=== PATIENT | female | born 1990 | race Caucasian/White ===

== ENCOUNTER 2018-05-14 13:00 | Emergency (ER) | payer BC ==
[2018-05-14] MEDS ORDERED: SODIUM CHLORIDE 0.9% 1,000 ML IV STA (13:34)
[2018-05-14 13:36] VITALS: RESP 18
--- NOTE | 2018-05-14 13:39 | ED ---
SOB HPI - General Chief Complaint: Shortness of Breath Stated Complaint: ASTON Time Seen by Provider: 05/14/18 13:21 Source: patient, RN notes reviewed, old records reviewed Mode of arrival: wheelchair Limitations: no limitations - History of Present Illness Initial Comments: His is a 27-year-old female presents emergency department today with chief complaint of episodes of numbness and tingling down the left side of her face as well as her leg. Patient reports that this occurred while she was playing volleyball today. Patient states that prior to splinting level today she started to feel somewhat strange and confused. Patient states that she was playing and had this onset of the tingling sensation in the hand face. Patient reports that she then started developing difficulty breathing. Patient was transferred here with her boyfriend and father. Father states history of brain aneurysms. Patient reports that she had resolution of her difficulty breathing and most of her symptoms while she was in the emergency department. Patient at this time states that she feels somewhat shaky. She denies any significant shortness of breath at this time. - Related Data Allergies Allergy/AdvReac Type Severity Reaction Status Date / Time codeine Allergy Unknown Verified 05/14/18 13:04 Review of Systems ROS Statement: Those systems with pertinent positive or pertinent negative responses have been documented in the HPI. ROS Other: All systems not noted in ROS Statement are negative. Past Medical History Past Medical History: No Reported History History of Any Multi-Drug Resistant Organisms: None Reported Past Surgical History: No Surgical Hx Reported Past Psychological History: No Psychological Hx Reported Smoking Status: Never smoker Past Alcohol Use History: Occasional Past Drug Use History: None Reported General Exam - General Exam Comments Initial Comments: 27-year-old female. Alert and oriented. No significant distress. Patient appears somewhat anxious. Limitations: no limitations General appearance: alert, in no apparent distress Head exam: Present: atraumatic, normocephalic, normal inspection Eye exam: Present: normal appearance, PERRL, EOMI. Absent: scleral icterus, conjunctival injection, periorbital swelling ENT exam: Present: normal exam, mucous membranes moist Neck exam: Present: normal inspection. Absent: tenderness, meningismus, lymphadenopathy Respiratory exam: Present: normal lung sounds bilaterally. Absent: respiratory distress, wheezes, rales, rhonchi, stridor Cardiovascular Exam: Present: regular rate, normal rhythm, normal heart sounds. Absent: systolic murmur, diastolic murmur, rubs, gallop, clicks GI/Abdominal exam: Present: soft, normal bowel sounds. Absent: distended, tenderness, guarding, rebound, rigid Extremities exam: Present: normal inspection, full ROM, normal capillary refill. Absent: tenderness, pedal edema, joint swelling, calf tenderness Back exam: Present: normal inspection Neurological exam: Present: alert, oriented X3, CN II-XII intact Psychiatric exam: Present: normal affect, normal mood Skin exam: Present: warm, dry, intact, normal color. Absent: rash Course Vital Signs 05/14/18 05/14/18 05/14/18 13:01 13:32 14:30 Temperature 98.1 F 98.3 F Pulse Rate 112 H 92 92 Pulse Rate [ 92 Churner ] Respiratory 24 18 18 Rate Blood Pressure 146/81 139/87 115/72 O2 Sat by Pulse 100 98 98 Oximetry 05/14/18 15:42 Temperature 97.2 F L Pulse Rate 85 Pulse Rate [ Churner ] Respiratory 18 Rate Blood Pressure 111/69 O2 Sat by Pulse 97 Oximetry - Reevaluation(s) Reevaluation #1: 05/14/18 15:20 Patient advised resting heavily bed at this time. She states she has no peripheral paresthesias. She is complaining of a minor headache. Patient is given Toradol. A portable results in the lab work was reviewed and normal. Patient initially with this. The patient's symptoms related to panic attack and likely had a migraine on top of this symptoms of paresthesias and the headache prior to her symptoms. Medical Decision Making - Medical Decision Making This is a 27-year-old female present the emergency department today with chief complaint of paresthesias, hyperventilation, and paresthesias over the left side of her face and arm. They resolved upon arriving here. She was feeling better initially. Patient also relates a minor headache. Patient is quite concerned about adamantly some the brain with history of aneurysms the family. CT of the brain was ordered and completed and negative for any acute process. She is no focal or lateralizing findings and examination. Patient's lungs are clear to auscultation. The Patient likely was suffering from a migraine and subsequently had a panic attack. Patient was given IV fluids and follow-up for labwork was reviewed and normal. Normal EKG. Patient informed of all results. She is feeling some early but does complain of minor headache. We'll give the Patient Toradol and Zofran at this time. Patient was reevaluated and feels much better. Patient will be discharged with close follow up with PCP. - Lab Data Result diagrams: 05/14/18 13:30 05/14/18 13:30 Lab Results 05/14/18 05/14/18 05/14/18 Range/Units 13:30 13:30 13:30 WBC 6.4 (3.8-10.6) k/uL RBC 4.65 (3.80-5.40) m/uL Hgb 14.3 (11.4-16.0) gm/dL Hct 42.7 (34.0-46.0) % MCV 91.8 (80.0-100.0) fL MCH 30.7 (25.0-35.0) pg MCHC 33.5 (31.0-37.0) g/dL RDW 12.5 (11.5-15.5) % Plt Count 234 (150-450) k/uL Neutrophils % 70 % Lymphocytes % 21 % Monocytes % 6 % Eosinophils % 1 % Basophils % 0 % Neutrophils # 4.4 (1.3-7.7) k/uL Lymphocytes # 1.3 (1.0-4.8) k/uL Monocytes # 0.4 (0-1.0) k/uL Eosinophils # 0.0 (0-0.7) k/uL Basophils # 0.0 (0-0.2) k/uL PT (9.0-12.0) sec INR (<1.2) APTT (22.0-30.0) sec Sodium 137 (137-145) mmol/L Potassium 3.7 (3.5-5.1) mmol/L Chloride 104 (98-107) mmol/L Carbon Dioxide 18 L (22-30) mmol/L Anion Gap 15 mmol/L BUN 12 (7-17) mg/dL Creatinine 0.67 (0.52-1.04) mg/dL Est GFR (CKD-EPI)AfAm >90 (>60 ml/min/1.73 sqM) Est GFR (CKD-EPI)NonAf >90 (>60 ml/min/1.73 sqM) Glucose 125 H (74-99) mg/dL Calcium 9.4 (8.4-10.2) mg/dL Total Bilirubin 0.7 (0.2-1.3) mg/dL AST 23 (14-36) U/L ALT 24 (9-52) U/L Alkaline Phosphatase 48 (38-126) U/L Total Creatine Kinase 108 (30-135) U/L CK-MB (CK-2) 0.6 (0.0-2.4) ng/mL CK-MB (CK-2) Rel Index 0.6 Troponin I <0.012 (0.000-0.034) ng/mL Total Protein 7.6 (6.3-8.2) g/dL Albumin 4.6 (3.5-5.0) g/dL 05/14/18 Range/Units 13:30 WBC (3.8-10.6) k/uL RBC (3.80-5.40) m/uL Hgb (11.4-16.0) gm/dL Hct (34.0-46.0) % MCV (80.0-100.0) fL MCH (25.0-35.0) pg MCHC (31.0-37.0) g/dL RDW (11.5-15.5) % Plt Count (150-450) k/uL Neutrophils % % Lymphocytes % % Monocytes % % Eosinophils % % Basophils % % Neutrophils # (1.3-7.7) k/uL Lymphocytes # (1.0-4.8) k/uL Monocytes # (0-1.0) k/uL Eosinophils # (0-0.7) k/uL Basophils # (0-0.2) k/uL PT 10.4 (9.0-12.0) sec INR 1.1 (<1.2) APTT 23.6 (22.0-30.0) sec Sodium (137-145) mmol/L Potassium (3.5-5.1) mmol/L Chloride (98-107) mmol/L Carbon Dioxide (22-30) mmol/L Anion Gap mmol/L BUN (7-17) mg/dL Creatinine (0.52-1.04) mg/dL Est GFR (CKD-EPI)AfAm (>60 ml/min/1.73 sqM) Est GFR (CKD-EPI)NonAf (>60 ml/min/1.73 sqM) Glucose (74-99) mg/dL Calcium (8.4-10.2) mg/dL Total Bilirubin (0.2-1.3) mg/dL AST (14-36) U/L ALT (9-52) U/L Alkaline Phosphatase (38-126) U/L Total Creatine Kinase (30-135) U/L CK-MB (CK-2) (0.0-2.4) ng/mL CK-MB (CK-2) Rel Index Troponin I (0.000-0.034) ng/mL Total Protein (6.3-8.2) g/dL Albumin (3.5-5.0) g/dL 05/14/18 15:22 EKG performed at 1336 shows normal sinus rhythm normal ECG. Ventricular rate 94 bpm. Intervals 160. QRS duration 90 ms. QT QTc is 350/440 ms. - Radiology Data Radiology results: report reviewed Chest x-rays negative for any acute process. CT of the brain is negative for any acute hemorrhage or mass effect or midline shift. Disposition Clinical Impression: Migraine, Paresthesia, Anxiety Disposition: HOME SELF-CARE Condition: Good Instructions: Migraine Headache (ED) Additional Instructions: Patient has had some close follow-up with primary care physician. Schedule an appointment for Wednesday. Return to emergency department if any alarming signs or symptoms occur. Is patient prescribed a controlled substance at d/c from ED?: No Referrals: Kt Nelson MD [Primary Care Provider] - 1-2 days Time of Disposition: 15:31
[2018-05-14 14:06] LABS: ALT 24 U/L (9-52); AST 23 U/L (14-36); Albumin 4.6 g/dL (3.5-5.0); Alkaline Phosphatase 48 U/L (38-126); Anion Gap 15 mmol/L; Blood Urea Nitrogen 12 mg/dL (7-17); Calcium 9.4 mg/dL (8.4-10.2); Carbon Dioxide 18 mmol/L (22-30); Chloride 104 mmol/L (98-107); Creatine Kinase 108 U/L (30-135); Glucose 125 mg/dL (74-99); Potassium 3.7 mmol/L (3.5-5.1); Sodium 137 mmol/L (137-145); Total Bilirubin 0.7 mg/dL (0.2-1.3); Total Protein 7.6 g/dL (6.3-8.2)
[2018-05-14 14:10] LABS: INR 1.1 (<1.2); Partial Thromboplastin Time 23.6 sec (22.0-30.0); Prothrombin Time 10.4 sec (9.0-12.0)
[2018-05-14 14:18] LABS: Creatine Kinase MB 0.6 ng/mL (0.0-2.4); Troponin I <0.012 ng/mL (0.000-0.034)
--- NOTE | 2018-05-14 14:18 | CT ---
EXAMINATION TYPE: CT brain wo con DATE OF EXAM: 05/14/2018 COMPARISON: NONE HISTORY: Blurred vision and weakness. No known injury CT DLP: 999.8 mGycm. Automated Exposure Control for Dose Reduction was Utilized. TECHNIQUE: CT scan of the head is performed without contrast. FINDINGS: There is no acute intracranial hemorrhage, mass effect, or midline shift identified. The ventricles and sulci are within normal limits in size. The globes are intact and the visualized sin uses are clear. IMPRESSION: No acute intracranial hemorrhage, mass effect, or midline shift is seen.
--- NOTE | 2018-05-14 14:18 | XR ---
EXAMINATION TYPE: XR chest 2V DATE OF EXAM: 05/14/2018 COMPARISON: NONE HISTORY: Altered mental status TECHNIQUE: Frontal and lateral views of the chest are obtained. FINDINGS: There is no focal air space opacity, pleural effusion, or pneumothorax seen. The cardiac silhouette size is within normal limits. The osseous structures are intact. IMPRESSION: No acute cardiopulmonary process.
[2018-05-14 14:19] LABS: Basophils % (A) 0 %; Eosinophils % (A) 1 %; HCT 42.7 % (34.0-46.0); HGB 14.3 gm/dL (11.4-16.0); Lymphocytes # (A) 1.3 k/uL (1.0-4.8); Lymphocytes % (A) 21 %; MCH 30.7 pg (25.0-35.0); MCHC 33.5 g/dL (31.0-37.0); MCV 91.8 fL (80.0-100.0); Monocytes # (A) 0.4 k/uL (0-1.0); Monocytes % (A) 6 %; Neutrophils # (A) 4.4 k/uL (1.3-7.7); Neutrophils % (A) 70 %; Platelet Count 234 k/uL (150-450); RBC 4.65 m/uL (3.80-5.40); RDW 12.5 % (11.5-15.5); WBC 6.4 k/uL (3.8-10.6)
[2018-05-14] MEDS ORDERED: ONDANSETRON 4 MG/2 ML VIAL IVP STA (14:47)
[2018-05-14] MEDS ORDERED: KETOROLAC 30 MG/ML 1 ML VIAL IVP STA (14:47)
[2018-05-14 15:43] VITALS: BP 111/69; PULSE 85; TEMP 97.2
== END 2018-05-14 15:43 | disposition home or self-care (01) ==
LOC: EC 13:00
DX: G43.909 Migraine, unspecified, not intractable, without status migrainosus (principal); F41.9 Anxiety disorder, unspecified; R20.2 Paresthesia of skin; I67.1 Cerebral aneurysm, nonruptured; Z88.5 Allergy status to narcotic agent
CPT/HCPCS: 36415; 93005; 80053; 82550; 82553; 84484; 85025; 85610; 85730; 71046; 70450; 99285; 96374; 96375; 96361; J2405; J1885

== ENCOUNTER 2020-03-24 23:40 | Observation (INO) | payer BC ==
[2020-03-25] MEDS: LACTATED RINGERS 1,000 ML IV SCH ×2 (00:27→01:47)
[2020-03-25 00:46] LABS: Basophils % (A) 0 %; Eosinophils # (A) 0.1 k/uL (0-0.7); Eosinophils % (A) 1 %; HCT 34.2 % (34.0-46.0); HGB 11.5 gm/dL (11.4-16.0); Lymphocytes # (A) 1.4 k/uL (1.0-4.8); Lymphocytes % (A) 18 %; MCH 30.7 pg (25.0-35.0); MCHC 33.6 g/dL (31.0-37.0); MCV 91.3 fL (80.0-100.0); Mean Platelet Volume 7.6; Monocytes # (A) 0.6 k/uL (0-1.0); Monocytes % (A) 8 %; Neutrophils # (A) 5.2 k/uL (1.3-7.7); Neutrophils % (A) 70 %; Platelet Count 244 k/uL (150-450); RBC 3.74 m/uL (3.80-5.40); RDW 13.8 % (11.5-15.5); WBC 7.4 k/uL (3.8-10.6)
[2020-03-25 00:48] LABS: Amorphous Sediment,Urine Rare /hpf; Appearance,Urine Clear (Clear); Bacteria,Urine Occasional /hpf; Bilirubin,Urine Negative (Negative); Blood,Urine Negative (Negative); Color,Urine Light Yellow; Glucose,Urine (UA) Negative (Negative); Ketones,Urine Negative (Negative); Leukocyte Esterase,Urine Trace (Negative); Nitrite,Urine Negative (Negative); Protein,Urine Negative (Negative); RBC,Urine 2 /hpf (0-5); Specific Gravity,Urine 1.008 (1.001-1.035); Squamous Epithelial Cell,Urine 1 /hpf (0-4); Urobilinogen,Urine <2.0 mg/dL (<2.0); WBC,Urine 3 /hpf (0-5)
[2020-03-25 00:54] LABS: ALT 17 U/L (4-34); AST 21 U/L (14-36); African American GFR (CKD) >90 (>60 ml/min/1.73 sqM); Blood Urea Nitrogen 6 mg/dL (7-17); LDH 354 U/L (313-618); Non-African American GFR(CKD) >90 (>60 ml/min/1.73 sqM)
[2020-03-25 01:06] LABS: Protein/Creatinine Ratio,Urine 0.461
[2020-03-25] MEDS ORDERED: ACETAMINOPHEN TAB 500 MG TAB PO PRN (01:24)
[2020-03-25 04:11] VITALS: BP 129/77; PULSE 99; RESP 14; TEMP 98
--- NOTE | 2020-03-25 07:47 | US ---
EXAMINATION TYPE: US OB limited DATE OF EXAM: 03/25/2020 COMPARISON: NONE CLINICAL HISTORY: NADINE only . EXAM PERFORMED: Transabdominal (TA) GESTATIONAL AGE / DATING Physician Established: (31 weeks/1 days) EDC: 05/26/19 No growth performed on today?s study per ordering physician SURVEY NADINE: 13.8 cm Normal (Tech?if abnormal transabdominally?image transvaginally to substantiate abnormality.) PRESENTATION: Vertex HEART RATE: 142 bpm RHYTHM: Normal IMPRESSION: Examination was performed for amniotic fluid index only as a limited exam. Amniotic flui d index is within normal limits measured at 13.8 cm.
--- NOTE | 2020-03-25 09:11 | P.HPOB ---
History of Present Illness H&P Date: 03/25/20 Chief Complaint: IUP at 31 weeks, abdominal pain This is a pleasant 29-year-old 1 para 0 at 31 weeks of gestation with an estimated due date of 05/26/2020. Patient presented to labor and delivery last evening after noting abdominal pain that was coming and going, increasing in strength. Patient states movement was decreased in addition. On initial presentation to triage elevated blood pressures were noted 140s 150s over 80s. Patient denied signs or symptoms of preeclampsia. Preeclampsia labs were obtained last evening. All normal in nature. heart tones were noted to be reassuring for gestational age at that time. IV fluids were instituted, and patient was admitted for observation with planned ultrasound for NADINE in the morning. Patient is seen this morning she is without complaints. She states she is feeling better, movement is improved, heart tones are noted to be category 1. She is not nadya. Review of Systems Constitutional: Denies chills, Denies fatigue, Denies fever Ears, nose, mouth and throat: Denies headache Cardiovascular: Denies edema Respiratory: Denies dyspnea Gastrointestinal: Denies nausea, Denies vomiting Genitourinary: Reports Past Medical History Past Medical History: No Reported History History of Any Multi-Drug Resistant Organisms: None Reported Past Surgical History: No Surgical Hx Reported Past Anesthesia/Blood Transfusion Reactions: No Reported Reaction Past Psychological History: No Psychological Hx Reported Smoking Status: Never smoker Past Alcohol Use History: Occasional Past Drug Use History: None Reported - Past Family History Mother Family Medical History: No Reported History Medications and Allergies Home Medications Medication Instructions Recorded Confirmed Type Pnv,Calcium 72/Iron/Folic Acid 1 tab PO DAILY 03/24/20 03/24/20 History [ Plus Tablet] Allergies Allergy/AdvReac Type Severity Reaction Status Date / Time codeine Allergy Unknown Verified 03/24/20 23:46 Exam Osteopathic Statement: *. No significant issues noted on an osteopathic structural exam other than those noted in the History and Physical/Consult. 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 Breathing is noted to nonlabored, heart has regular rate and rhythm, abdomen is gravid and soft, vaginal exam is deferred at this time and she is not nadya and was noted to be closed last evening. heart tones are reviewed and noted to be category 1, no contractions are noted on the monitor. Results Result Diagrams: 03/25/20 00:27 03/25/20 00:27 Abnormal Lab Results - Last 24 Hours (Table) 03/25/20 03/25/20 03/25/20 Range/Units 00:27 00:27 00:27 RBC 3.74 L (3.80-5.40) m/uL BUN 6 L (7-17) mg/dL Creatinine 0.35 L (0.52-1.04) mg/dL Uric Acid 3.0 L (3.7-7.4) mg/dL Ur Leukocyte Esterase Trace H (Negative) Amorphous Sediment Rare H (None) /hpf Urine Bacteria Occasional H (None) /hpf Assessment and Plan (1) 31 weeks gestation of Current Visit: Yes Status: Acute Code(s): Z3A.31 - 31 WEEKS GESTATION OF SNOMED Code(s): 92500273 (2) Abdominal pain affecting Current Visit: Yes Status: Acute Code(s): O26.899 - OTH RELATED CONDITIONS, UNSPECIFIED TRIMESTER; R10.9 - UNSPECIFIED ABDOMINAL PAIN SNOMED Code(s): 365826377 (3) Uterine fibroid Current Visit: Yes Status: Acute Code(s): D25.9 - LEIOMYOMA OF UTERUS, UNSPECIFIED SNOMED Code(s): 96494721 Plan: Given patient is feeling much improved this morning we will plan discharge with close follow up with myself on Wednesday. Prior records are reviewed with patient, initial first trimester ultrasound revealing fundal/right-sided u terine fibroid 3 cm in nature, when ultrasound was completed around 20 weeks' this fibroid was noted to be increased in size to 5 cm. I do suspect that the growth of the fibroid could be related to her pain. labor precautions are reviewed with the patient. As stated above she will be seen Wednesday for close follow-up. Blood pressures are reviewed through the evening and all normal. Blood pressure this morning 130s over 70s. Plan discharge home.
--- NOTE | 2020-03-25 09:13 | P.DS ---
Providers Date of admission: 03/25/20 01:24 Expected date of discharge: 03/25/20 Attending physician: Sophia Miller Primary care physician: Stated None - Discharge Diagnosis(es) (1) 31 weeks gestation of Current Visit: Yes Status: Acute (2) Abdominal pain affecting Current Visit: Yes Status: Acute (3) Uterine fibroid Current Visit: Yes Status: Acute Hospital Course: This pleasant 29-year-old 1 para 0 at 31 weeks of gestation presented last evening with complaints of abdominal pain. Patient is a known uterine fibroid which could be contributing to her abdominal pain. Patient was admitted overnight, IV fluids and close blood pressure monitoring were instituted. Blood pressures were normal over the night and into the morning. She suspects patient was quite nervous being in the hospital, and worried about what was happening. heart tones are noted to be reassuring, amniotic fluid index is noted to be normal as morning. She hasn't had contractions over the evening or this morning. Plan - Discharge Summary New Discharge Prescriptions: No Action Pnv,Calcium 72/Iron/Folic Acid [ Plus Tablet] 1 tab PO DAILY Discharge Medication List Pnv,Calcium 72/Iron/Folic Acid [ Plus Tablet] 1 tab PO DAILY 03/24/20 [History] Follow up Appointment(s)/Referral(s): Sophia Miller DO [Doctor of Osteopathic Medicine] - 1 Week Discharge Disposition: HOME SELF-CARE
== END 2020-03-25 09:15 | disposition home or self-care (01) ==
LOC: FBPOP 23:40 → 4FBP 03-25 01:24
PROVIDERS: ADMIT Obstetrics & Gynecology Obstetrics; ATTEND Obstetrics & Gynecology Obstetrics
DX: O26.893 Other specified pregnancy related conditions, third trimester (principal); R10.9 Unspecified abdominal pain; O34.13 Maternal care for benign tumor of corpus uteri, third trimester; D25.9 Leiomyoma of uterus, unspecified; Z3A.31 31 weeks gestation of pregnancy; R03.0 Elevated blood-pressure reading, without diagnosis of hypertension; Z88.5 Allergy status to narcotic agent
CPT/HCPCS: 59025; 99215; 96360; 82570; 84156; 82565; 83615; 84450; 84460; 84520; 84550; 85025; 81001; 76815; G0378

== ENCOUNTER 2020-05-16 11:04 | Inpatient (IN) | payer BC ==
[2020-05-16 11:41] LABS: Appearance,Urine Turbid (Clear); Bacteria,Urine Moderate /hpf; Bilirubin,Urine Negative (Negative); Blood,Urine Trace (Negative); Color,Urine Yellow; Glucose,Urine (UA) Negative (Negative); Ketones,Urine Negative (Negative); Leukocyte Esterase,Urine Large (Negative); Mucus,Urine Moderate /hpf; Nitrite,Urine Negative (Negative); PH, Urine 6.5 (5.0-8.0); Protein,Urine 1+ (Negative); RBC,Urine 9 /hpf (0-5); Specific Gravity,Urine 1.018 (1.001-1.035); Squamous Epithelial Cell,Urine 3 /hpf (0-4); WBC,Urine 23 /hpf (0-5)
[2020-05-16 11:50] LABS: Creatinine,Urine Random 208.9 mg/dL; Protein/Creatinine Ratio,Urine 0.215
[2020-05-16 12:04] LABS: Basophils % (A) 0 %; Eosinophils % (A) 1 %; HCT 34.4 % (34.0-46.0); HGB 11.6 gm/dL (11.4-16.0); Lymphocytes # (A) 0.9 k/uL (1.0-4.8); Lymphocytes % (A) 14 %; MCH 30.2 pg (25.0-35.0); MCHC 33.8 g/dL (31.0-37.0); MCV 89.4 fL (80.0-100.0); Mean Platelet Volume 8.8; Monocytes # (A) 0.5 k/uL (0-1.0); Monocytes % (A) 7 %; Neutrophils # (A) 5.4 k/uL (1.3-7.7); Neutrophils % (A) 77 %; Platelet Count 189 k/uL (150-450); RBC 3.84 m/uL (3.80-5.40); RDW 14.4 % (11.5-15.5); WBC 6.9 k/uL (3.8-10.6)
[2020-05-16] MEDS ORDERED: BUTORPHANOL 1 MG/ML 1 ML VIAL IV PRN (12:10)
[2020-05-16] MEDS ORDERED: DINOPROSTONE 10 MG INSERT.ER VAGINAL ONE (12:10)
[2020-05-16] MEDS ORDERED: ZOLPIDEM 5 MG TAB PO PRN (12:10)
[2020-05-16 12:13] LABS: ALT 15 U/L (4-34); AST 22 U/L (14-36); African American GFR (CKD) >90 (>60 ml/min/1.73 sqM); Blood Urea Nitrogen 3 mg/dL (7-17); LDH 391 U/L (313-618); Non-African American GFR(CKD) >90 (>60 ml/min/1.73 sqM); Uric Acid 3.7 mg/dL (3.7-7.4)
[2020-05-16] MEDS ORDERED: hydrALAZINE HCL 20 MG/ML 1 ML VIAL IVP STA (12:35)
[2020-05-16] MEDS ORDERED: CITRIC ACID-SODIUM CITRATE 15 ML CUP PO ONE (13:20)
[2020-05-16] MEDS ORDERED: OXYTOCIN 10 UNIT/ML 1 ML VIAL ONE (13:25)
[2020-05-16] MEDS ORDERED: PHENYLEPHRINE-0.9% NACL SYG 1 MG/10 ML SYRINGE ONE (13:25)
[2020-05-16] MEDS ORDERED: ONDANSETRON 4 MG/2 ML VIAL ONE (13:25)
[2020-05-16] MEDS ORDERED: MORPHINE SULFATE (PF) 0.3 MG/0.3 ML SYR ONE (13:25)
[2020-05-16] MEDS ORDERED: diphenhydrAMINE 50 MG/ML 1 ML VIAL IVP PRN ×3 (13:54→14:13)
[2020-05-16] MEDS ORDERED: NALOXONE 0.4 MG/ML 1 ML VIAL IV PRN ×2 (13:54→14:13)
[2020-05-16] MEDS ORDERED: MORPHINE SULFATE 2 MG/ML SYRINGE IVP PRN (13:54)
[2020-05-16] MEDS ORDERED: ONDANSETRON 4 MG/2 ML VIAL IVP PRN ×2 (13:54→14:13)
[2020-05-16] MEDS ORDERED: METOCLOPRAMIDE 5 MG/ML 2 ML VIAL IVP PRN (14:13)
[2020-05-16] MEDS ORDERED: ACETAMINOPHEN IV (For NPO) 1,000 MG in EMPTY BAG 1 BAG IVPB ONE (14:13)
[2020-05-16] MEDS ORDERED: diphenhydrAMINE 25 MG CAP PO PRN (14:13)
[2020-05-16] MEDS ORDERED: SIMETHICONE 80 MG CHEWABLE PO PRN (14:13)
[2020-05-16] MEDS ORDERED: ACETAMINOPHEN TAB 325 MG TAB PO PRN (14:13)
[2020-05-16] MEDS ORDERED: diphenhydrAMINE 50 MG CAP PO PRN (14:13)
[2020-05-16] MEDS ORDERED: OXYTOCIN 20 UNITS/1000 ML NS 1,000 ML IV SCH (14:15)
[2020-05-16] MEDS ORDERED: IBUPROFEN IV 800 MG in SODIUM CHLORIDE 0.9% 250 ML IV ONE (14:17)
--- NOTE | 2020-05-16 14:20 | P.HPOB ---
History of Present Illness H&P Date: 05/16/20 Chief Complaint: IUP at 38 and 4/sevenths weeks, preeclampsia This is a 29-year-old 1 para 0 at 38-4/7 weeks that presents to labor and delivery from the office after noted elevations of her blood pressure 150/94. Patient denied signs or symptoms of preeclampsia. While on labor and delivery patient's blood pressures were noted to be elevated 160s to 170s over 90s to 100s. At that time decision was made to admit the patient progressed 0 labs were done along with a urinalysis which yielded proteinuria. Patient was counseled on the need for primary secondary to preeclampsia remote from delivery, worsening blood pressures were noted despite hydralazine treatment. Patient has been receiving routine care which has been essentially uncomplicated despite the fact of a known uterine fibroid. Patient has some pain early in secondary to this fibroid otherwise she has felt well. On blood work she has a blood type of O+, rubella status is immune, B surface antigen negative, RPR nonreactive, group beta strep is negative. Review of Systems Constitutional: Denies chills, Denies fatigue, Denies fever Ears, nose, mouth and throat: Denies headache Cardiovascular: Reports leg edema Respiratory: Denies dyspnea Gastrointestinal: Denies constipation, Denies diarrhea, Denies nausea, Denies vomiting Genitourinary: Reports Past Medical History Past Medical History: No Reported History History of Any Multi-Drug Resistant Organisms: None Reported Past Surgical History: No Surgical Hx Reported Past Anesthesia/Blood Transfusion Reactions: No Reported Reaction Past Psychological History: No Psychological Hx Reported Smoking Status: Never smoker Past Alcohol Use History: Occasional Past Drug Use History: None Reported - Past Family History Mother Family Medical History: No Reported History Medications and Allergies Home Medications Medication Instructions Recorded Confirmed Type Pnv,Calcium 72/Iron/Folic Acid 1 tab PO DAILY 03/24/20 05/16/20 History [ Plus Tablet] Allergies Allergy/AdvReac Type Severity Reaction Status Date / Time codeine Allergy Unknown Verified 05/16/20 11:12 Exam Osteopathic Statement: *. No significant issues noted on an osteopathic structural exam other than those noted in the History and Physical/Consult. 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 heart tones returned be category 1 and she is not nadya. Results Result Diagrams: 05/16/20 11:52 05/16/20 11:52 Abnormal Lab Results - Last 24 Hours (Table) 05/16/20 05/16/20 05/16/20 Range/Units 11:15 11:15 11:52 Lymphocytes # (1.0-4.8) k/uL BUN 3 L (7-17) mg/dL Creatinine 0.41 L (0.52-1.04) mg/dL Urine Appearance Turbid H (Clear) Urine Protein 1+ H (Negative) Urine Blood Trace H (Negative) Ur Leukocyte Esterase Large H (Negative) Urine RBC 9 H (0-5) /hpf Urine WBC 23 H (0-5) /hpf Urine Bacteria Moderate H (None) /hpf Urine Mucus Moderate H (None) /hpf U Random Total Protein 45 H (<12) mg/dL 05/16/20 Range/Units 11:52 Lymphocytes # 0.9 L (1.0-4.8) k/uL BUN (7-17) mg/dL Creatinine (0.52-1.04) mg/dL Urine Appearance (Clear) Urine Protein (Negative) Urine Blood (Negative) Ur Leukocyte Esterase (Negative) Urine RBC (0-5) /hpf Urine WBC (0-5) /hpf Urine Bacteria (None) /hpf Urine Mucus (None) /hpf U Random Total Protein (<12) mg/dL Assessment and Plan (1) Term Current Visit: Yes Status: Acute Code(s): Z34.90 - ENCNTR FOR SUPRVSN OF NORMAL , UNSP, UNSP TRIMESTER SNOMED Code(s): 70156051 (2) Preeclampsia Current Visit: Yes Status: Acute Code(s): O14.90 - UNSPECIFIED PRE- ECLAMPSIA, UNSPECIFIED TRIMESTER SNOMED Code(s): 158245998 (3) Uterine fibroid Current Visit: No Status: Acute Code(s): D25.9 - LEIOMYOMA OF UTERUS, UNSPECIFIED SNOMED Code(s): 68842159 Plan: Patient is admitted to labor and delivery for planned primary secondary to preeclampsia, remote from delivery. Options are reviewed with patient including trying induction of labor but given worsening blood pressures I do believe primary is the best decision. Patient agrees and wishes to proceed. Risks of surgery are reviewed in detail including but not limited to infection, bleeding, damage to bladder, bowel, injury. Patient states understanding and is taken back to the operative suite.
--- NOTE | 2020-05-16 14:24 | P.OP ---
Date of Procedure: 05/16/20 Preoperative Diagnosis: IUP at 38 and 4/sevenths weeks, preeclampsia, remote from delivery Postoperative Diagnosis: Same Procedure(s) Performed: Primary low transverse section Anesthesia: spinal Surgeon: Sophia Miller Java Solutions Architect #1: Renee Sorto Estimated Blood Loss (ml): 700 IV fluids (ml): 800 Urine output (ml): 200 Pathology: other (Placenta) Condition: stable Disposition: PACU Indications for Procedure: This 29-year-old 1 para 0 with noted elevated pressures 160s to 170s over 100 diagnosis of severe preeclampsia, remote from delivery. Operative Findings: Uterus with known right anterior fibroid, omental adhesions to uterine fibroid. Otherwise normal ovaries are appreciated. Liveborn male delivered at 1342, weight of 9 lbs. 4 oz. and Apgars of 9 and 9 at one and 5 minutes respect daily. Description of Procedure: Patient is taken back to the operating suite where spinal anesthesia was found be adequate by the anesthesia department. She was then prepped and draped in normal sterile fashion in the dorsal supine position. A Pfannenstiel skin incision was made with scalpel and carried through to the underlying layer of fascia. The fascia was then incised in the midline and the incision was extended laterally. The superior aspect of the fascial incision was then grasped amy clamps, elevated and underlying rectus muscles dissected off sharply. Attention was then turned to the patient's inferior aspect of the fascial incision which was grasped amy clamps, elevated and underlying rectus muscles dissected off sharply once again. The rectus muscles were in the midline the peritoneum was identified and entered. The bladder blade was then inserted into the pelvis. The vesicouterine peritoneum was identified and a bladder flap was created using sharp and blunt dissection. At this time a scalpel was used to make a hysterotomy incision. Amniotomy with the scalpel history and clear fluid was obtained. The fetus was encountered in a vertex presentation. The infant was delivered atraumatically the umbilical cord was doubly clamped and cut and handed off to awaiting RN. Cord blood was then taken. The placenta was then removed manually and the uterus was cleared of all clots and debris. Uterine was then delivered from the abdomen. The uterine incision was then closed with 0 Vicryl 2. Hemostasis was appreciated. The pelvis then copiously irrigated and the uterus was returned to the abdomen. The gutters were cleared of all clots and debris. The hysterotomy incision was inspected and hemostasis was appreciated. The peritoneum was then loosely reapproximated. The fascia was then closed from one lateral edge the midline and the other lateral edge to the midline with a runni ng suture. The subcu tissue was then irrigated hemostasis was appreciated and it was closed with 3-0 Vicryl in a running fashion. The skin was then closed with 4-0 Vicryl in a subcuticular fashion. Steri-Strips and sterile dressings were applied as needed. All counts were noted be correct 2 Patient and tolerated delivery well
[2020-05-16] MEDS: LACTATED RINGERS 1,000 ML IV SCH (15:06)
[2020-05-17] MEDS: LACTATED RINGERS 1,000 ML IV SCH (01:42)
[2020-05-17] MEDS: SENNOSIDES-DOCUSATE SODIUM 1 EACH TAB PO SCH ×3 (02:22→19:59)
[2020-05-17 06:34] LABS: Basophils % (A) 0 %; Eosinophils % (A) 0 %; HCT 31.6 % (34.0-46.0); HGB 10.6 gm/dL (11.4-16.0); Lymphocytes % (A) 13 %; MCH 29.9 pg (25.0-35.0); MCHC 33.5 g/dL (31.0-37.0); MCV 89.3 fL (80.0-100.0); Mean Platelet Volume 8.5; Monocytes # (A) 0.6 k/uL (0-1.0); Monocytes % (A) 8 %; Neutrophils # (A) 5.5 k/uL (1.3-7.7); Neutrophils % (A) 76 %; Platelet Count 188 k/uL (150-450); RBC 3.54 m/uL (3.80-5.40); RDW 14.6 % (11.5-15.5); WBC 7.3 k/uL (3.8-10.6)
--- NOTE | 2020-05-17 07:41 | P.PNOBGPC ---
Subjective - Subjective Principal diagnosis: POD 1 LTCS, preeclampsia Interval history: This 29-year-old 1 now para 1 did well overnight. She is ambulating and voiding without difficulty. She is tolerating regular diet without nausea or vomiting. She she is breast-feeding. She states her pain is well-controlled. Patient reports: Reports appetite normal, Reports voiding normally, Reports pain well controlled, Reports ambulating normally [place]: doing well, nursing well Objective - Vital Signs Latest vital signs: Vital Signs Temp Pulse Resp BP Pulse Ox 05/17/20 06:00 16 97 05/17/20 04:00 98.2 F 87 16 132/81 97 05/17/20 02:00 16 97 05/16/20 23:15 98.4 F 87 16 134/88 99 05/16/20 23:13 16 05/16/20 22:00 16 99 05/16/20 20:00 98.4 F 78 16 127/71 99 05/16/20 16:54 16 05/16/20 16:15 97.0 F L 92 16 124/60 05/16/20 15:45 98 16 106/65 05/16/20 15:15 103 H 16 101/52 05/16/20 14:54 16 98 05/16/20 14:48 96 16 128/50 05/16/20 14:45 93 16 81/46 05/16/20 14:30 85 16 74/42 98 05/16/20 14:15 97.0 F L 83 16 84/44 96 05/16/20 12:33 97.3 F L 96 16 167/99 97 Intake and Output 05/16/20 05/17/20 05/17/20 22:59 06:59 14:59 Output Total 1150 600 Balance -1150 -600 Output: Urine 450 600 Uretheral (Griffith) 600 Estimated Blood Loss 700 - Exam Extremities: Present: normal, edema Abdomen: Present: normal appearance Incision: Present: normal, dry, intact Uterus: Present: normal, firm - Labs Labs: Abnormal Lab Results - Last 24 Hours (Table) 05/16/20 05/16/20 05/16/20 Range/Units 11:15 11:15 11:52 RBC (3.80-5.40) m/uL Hgb (11.4-16.0) gm/dL Hct (34.0-46.0) % Lymphocytes # (1.0-4.8) k/uL BUN 3 L (7-17) mg/dL Creatinine 0.41 L (0.52-1.04) mg/dL Urine Appearance Turbid H (Clear) Urine Protein 1+ H (Negative) Urine Blood Trace H (Negative) Ur Leukocyte Esterase Large H (Negative) Urine RBC 9 H (0-5) /hpf Urine WBC 23 H (0-5) /hpf Urine Bacteria Moderate H (None) /hpf Urine Mucus Moderate H (None) /hpf U Random Total Protein 45 H (<12) mg/dL 05/16/20 05/17/20 Range/Units 11:52 05:42 RBC 3.54 L (3.80-5.40) m/uL Hgb 10.6 L (11.4-16.0) gm/dL Hct 31.6 L (34.0-46.0) % Lymphocytes # 0.9 L (1.0-4.8) k/uL BUN (7-17) mg/dL Creatinine (0.52-1.04) mg/dL Urine Appearance (Clear) Urine Protein (Negative) Urine Blood (Negative) Ur Leukocyte Esterase (Negative) Urine RBC (0-5) /hpf Urine WBC (0-5) /hpf Urine Bacteria (None) /hpf Urine Mucus (None) /hpf U Random Total Protein (<12) mg/dL Assessment and Plan (1) Term Current Visit: Yes Status: Acute Code(s): Z34.90 - ENCNTR FOR SUPRVSN OF NORMAL , UNSP, UNSP TRIMESTER SNOMED Code(s): 91928721 (2) Preeclampsia Current Visit: Yes Status: Acute Code(s): O14.90 - UNSPECIFIED PRE- ECLAMPSIA, UNSPECIFIED TRIMESTER SNOMED Code(s): 909754578 (3) Uterine fibroid Current Visit: No Status: Acute Code(s): D25.9 - LEIOMYOMA OF UTERUS, UNSPECIFIED SNOMED Code(s): 54282769 (4) S/P section Current Visit: Yes Status: Acute Code(s): Z98.891 - HISTORY OF UTERINE SCAR FROM PREVIOUS SURGERY SNOMED Code(s): 494596599 Plan: Plan to continue to watch blood pressures closely, anticipate discharge home tomorrow.
[2020-05-17] MEDS ORDERED: PRENATAL VIT-IRON-FOLIC ACID 1 EACH CAP PO SCH (09:00)
--- NOTE | 2020-05-17 09:09 | P.PN ---
Progress Note - Text Progress Note Date: 05/17/20 Postoperative day 1 status post section under spinal anesthesia, and i ntrathecal morphine given for postoperative analgesia, patient doing well, there is no anesthesia related complications, Patient had no headache, vital signs stable , Assessment and plan= postop day 1 status post , doing well there is no anesthesia related complication.
[2020-05-17] MEDS: HYDROcodone/APAP 5-325MG 1 EACH TAB PO PRN ×2 (10:38→18:53)
[2020-05-17] MEDS: IBUPROFEN 600 MG TAB PO PRN (14:02)
[2020-05-18] MEDS: IBUPROFEN 600 MG TAB PO PRN (04:54)
[2020-05-18] MEDS ORDERED: MEASLES-MUMPS-RUBELLA VACC/PF 12,500 UNIT/0.5 ML VIAL SQ ONE (05:08)
[2020-05-18 08:46] VITALS: BP 145/84; PULSE 90; RESP 16; TEMP 98
--- NOTE | 2020-05-18 10:31 | P.DS ---
Providers Date of admission: 05/16/20 12:11 Expected date of discharge: 05/18/20 Attending physician: Sophia Miller Primary care physician: Stated None - Discharge Diagnosis(es) (1) Preeclampsia Current Visit: Yes Status: Acute (2) S/P section Current Visit: Yes Status: Acute (3) Term Current Visit: Yes Status: Acute (4) Uterine fibroid Current Visit: No Status: Acute Hospital Course: This is a 29-year-old 1 now para 1 woman who is admitted at 38-4/7 weeks' gestation with preeclampsia. She underwent primary low transverse section as she was remote from delivery with significantly elevated blood pressures. Please see the admission history and physical for details. Findings at the time of surgery were significant for a right anterior fibroid with omental adhesions. She had a liveborn male weighing 9 lbs. 4 oz. with Apgars of 9 at 1 minute and 9 at 5 minutes. The patient's course was unremarkable. Her blood pressures did decrease the into the 140s over 80s. The patient did not receive magnesium sulfate seizure prophylaxis nor require antihypertensives. On day #1 her labs were reviewed and within normal limits. She was ambulating and voiding without difficulty. She had no signs or symptoms of worsening preeclampsia. By day #2 she continued to do very well with blood pressures in the 140s to 150s over 80s. She has 2+ bilateral lower extremity edema. Her incision is clean and dry and intact without erythema. She has 2+ deep tendon reflexes and no clonus. She denies headaches or visual changes. Patient strongly desires discharge home and she is deemed medically stable for such. She is discharged home with specific instructions for post operative care and follow-up specifically precautions regarding hypertension. Plan - Discharge Summary New Discharge Prescriptions: No Action Pnv,Calcium 72/Iron/Folic Acid [ Plus Tablet] 1 tab PO DAILY Discharge Medication List Pnv,Calcium 72/Iron/Folic Acid [ Plus Tablet] 1 tab PO DAILY 03/24/20 [History] Follow up Appointment(s)/Referral(s): Sophia Miller DO [Doctor of Osteopathic Medicine] - 2 Weeks Activity/Diet/Wound Care/Special Instructions: Follow-up in 2 weeks after surgery in the office. Call the office with any concerning signs or symptoms including fever greater than 101, severe abdominal pain, heavy vaginal bleeding, signs of wound infection, increased swelling or redness of the lower extremities, severe headache or visual changes, signs of depression. No driving for 2 weeks after surgery. No heavy lifting or vigorous activity until reevaluated in the office. No intercourse for 6 weeks after delivery. May use [id number] ibuprofen and/or Tylenol as needed for pain. Discharge Disposition: HOME SELF-CARE
== END 2020-05-18 14:05 | disposition home or self-care (01) | DRG 788 ==
LOC: FBPOP 11:04 → 4FBP 12:11
PROVIDERS: ADMIT Obstetrics & Gynecology Obstetrics; ATTEND Obstetrics & Gynecology Obstetrics
PROC: 10D00Z1 Extraction of Products of Conception, Low, Open Approach (ICD-10-PCS; principal; 2020-05-16 13:30)
DX: O14.14 Severe pre-eclampsia complicating childbirth (principal); Z37.0 Single live birth; Z3A.38 38 weeks gestation of pregnancy; D25.9 Leiomyoma of uterus, unspecified; O34.13 Maternal care for benign tumor of corpus uteri, third trimester; K66.0 Peritoneal adhesions (postprocedural) (postinfection); O99.62 Diseases of the digestive system complicating childbirth; O16.4 Unspecified maternal hypertension, complicating childbirth; Z88.5 Allergy status to narcotic agent
CPT/HCPCS: 59025; 81001; 82565; 82570; 83615; 84156; 84450; 84460; 84520; 84550; 85025; 86850; 86900; 86901; 88307; 99215

== ENCOUNTER → 2023-05-11 | Outpatient (CLI) | payer BC ==
--- NOTE | 2023-05-12 11:28 | MM ---
Reason for Exam: Clinical finding. Baseline mammogram. Indicated Problems: Pain of the left side (Global) for 2 Month(s). Patient History: Menarche at age 12. First Full-Term at age 29. Late child-bearing (after 29). Patient has history of breast feeding. Paternal aunt had breast cancer under age 50. Last menstrual period: 05/06/2023 Prior Study Comparison: Patient's first Mammogram. Tissue Density: The breast tissue is extremely dense which could obscure a lesion on mammography. Findings: Analyzed By CAD. No evidence for mass or distortion. No suspicious calcifications present. Overall Assessment: Negative, BI-RAD 1 Management: Screening Mammogram of both breasts at age 39. . Results were given to the patient verbally at the time of exam. Patient should continue monthly self-breast exams. A clinical breast exam by your physician is recommended on an annual basis. This exam should not preclude additional follow-up of suspicious palpable abnormalities. Note on Mag scores and lifetime risk: 1. A Mag score greater than 3% is considered moderate risk. If this is the case, consider specialist referral to assess eligibility for a risk reducing agent. 2. If overall lifetime risk for the development of breast cancer is 20% or higher, the patient may qualify for future screening with alternating mammogram and breast MRI. Electronically signed and approved by: Alen Bhatt M.D. Radiologis
== END | disposition home or self-care (01) ==
LOC: RADMAMWWP 13:30
PROVIDERS: ATTEND Family Medicine
DX: N63.10 Unspecified lump in the right breast, unspecified quadrant (principal); N63.20 Unspecified lump in the left breast, unspecified quadrant; Z80.3 Family history of malignant neoplasm of breast
CPT/HCPCS: 77062; 77066

== ENCOUNTER → 2023-08-12 | Outpatient (CLI) | payer BC | END | disposition home or self-care (01) | LOC: LABWHC1 14:07 | PROVIDERS: ATTEND Obstetrics & Gynecology Obstetrics | DX: O20.0 Threatened abortion (principal); Z3A.00 Weeks of gestation of pregnancy not specified | CPT/HCPCS: 36415; 84144; 84702 ==

== ENCOUNTER 2024-05-11 09:01 | Inpatient (IN) | payer BC ==
[2024-05-11] MEDS ORDERED: TRANEXAMIC 1,000 MG/100ML-NACL 1,000 MG in EMPTY BAG 1 BAG IV PRN (10:04)
[2024-05-11] MEDS ORDERED: miSOPROStoL 200 MCG TAB PO PRN (10:04)
[2024-05-11] MEDS ORDERED: METHYLERGONOVINE 0.2 MG/ML 1 ML AMP IM PRN (10:04)
[2024-05-11] MEDS ORDERED: OXYTOCIN 10 UNIT/ML 1 ML VIAL IM PRN (10:04)
[2024-05-11] MEDS ORDERED: CARBOPROST TROMETHAMINE 250 MCG/ML 1 ML AMP IM PRN (10:04)
[2024-05-11] MEDS: LACTATED RINGERS 1,000 ML IV SCH ×2 (10:10→22:07)
[2024-05-11] MEDS ORDERED: OXYTOCIN 30 UNITS/500 ML NS 30 UNIT in SALINE 1 500ML.BAG IV SCH (10:15)
[2024-05-11 10:22] LABS: Basophils % (A) 0 %; Eosinophils % (A) 1 %; HCT 36.8 % (34.0-46.0); HGB 12.5 gm/dL (11.4-16.0); Lymphocytes # (A) 1.1 k/uL (1.0-4.8); Lymphocytes % (A) 20 %; MCH 31.2 pg (25.0-35.0); MCV 91.7 fL (80.0-100.0); Monocytes # (A) 0.3 k/uL (0-1.0); Monocytes % (A) 6 %; Neutrophils # (A) 3.9 k/uL (1.3-7.7); Neutrophils % (A) 70 %; Platelet Count 196 k/uL (150-450); RBC 4.02 m/uL (3.80-5.40); RDW 14.3 % (11.5-15.5); WBC 5.5 k/uL (3.8-10.6)
[2024-05-11] MEDS: CITRIC ACID-SODIUM CITRATE 15 ML CUP PO ONE (11:23)
[2024-05-11] MEDS ORDERED: ONDANSETRON 4 MG/2 ML VIAL ONE (12:14)
[2024-05-11] MEDS ORDERED: MORPHINE SULFATE (PF) 0.3 MG/0.3 ML SYR ONE (12:14)
[2024-05-11] MEDS ORDERED: OXYTOCIN 30 UNITS/500 ML NS BAG IV ONE (12:14)
[2024-05-11] MEDS ORDERED: NALBUPHINE 10 MG/ML (10 ML MDV) ONE (12:14)
--- NOTE | 2024-05-11 13:32 | P.HPOB ---
History of Present Illness H&P Date: 05/11/24 Chief Complaint: IUP at 39-0/7 weeks, history of section desires repeat 33-year-old 3 para 1-0-1-1 that presents to labor and delivery at 39-0/7 weeks for scheduled repeat section. Patient has a history of a prior and is requesting repeat. Patient has been receiving routine care which has been essentially uncomplicated. Patient does have a prior history of preeclampsia this blood pressures have been well-controlle d. Patient notes good movement denies contractions vaginal bleeding or loss of fluid. On blood work this patient has a blood type of O+, rubella status immune, hepatitis B surface engine negative, HIV negative, RPR is nonreactive, grew beta strep cultures are negative. Review of Systems Constitutional: Denies chills, Denies fatigue, Denies fever Ears, nose, mouth and throat: Denies headache Cardiovascular: Reports leg edema Respiratory: Denies dyspnea Gastrointestinal: Denies nausea, Denies vomiting Genitourinary: Reports Past Medical History Past Medical History: No Reported History History of Any Multi-Drug Resistant Organisms: None Reported Past Surgical History: Section Past Anesthesia/Blood Transfusion Reactions: No Reported Reaction Past Psychological History: No Psychological Hx Reported Smoking Status: Never smoker Past Alcohol Use History: None Reported, Occasional Additional Past Alcohol Use History / Comment(s): not since Past Drug Use History: None Reported - Past Family History Mother Family Medical History: Hypertension Additional Family Medical History / Comment(s): brain aneurysm Father Family Medical History: Hypertension Medications and Allergies Home Medications Medication Instructions Recorded Confirmed Type Vit No.180/Iron/Folic 1 tab PO DAILY 03/24/20 05/11/24 History [ Plus Tablet] Aspirin 81 mg PO DAILY 05/09/24 05/11/24 History Allergies Allergy/AdvReac Type Severity Reaction Status Date / Time codeine Allergy Unknown Verified 05/09/24 15:49 Exam Osteopathic Statement: *. No significant issues noted on an osteopathic structural exam other than those noted in the History and Physical/Consult. Vital Signs Temp Pulse Resp BP Pulse Ox 05/11/24 13:16 82 16 114/56 97 05/11/24 13:00 97.1 F L 85 16 120/52 99 05/11/24 10:34 96.8 F L 84 18 140/84 98 Intake and Output 05/10/24 05/11/24 05/11/24 22:59 06:59 14:59 Other: Weight 94.801 kg Targeted physical exam is performed this date General is a well-nourished well- developed female in no acute distress, breathing is nonlabored, heart has a regular rate rhythm, abdomen is good, cervical exam is deferred, heart tones noted to be category 1. Results Result Diagrams: 05/11/24 10:10 Assessment and Plan (1) History of section Current Visit: Yes Status: Acute Code(s): Z98.891 - HISTORY OF UTERINE SCAR FROM PREVIOUS SURGERY SNOMED Code(s): 110402204 (2) Term Current Visit: No Status: Acute Code(s): Z34.90 - ENCNTR FOR SUPRVSN OF NORMAL , UNSP, UNSP TRIMESTER SNOMED Code(s): 70632840 (3) Uterine fibroid Current Visit: No Status: Acute Code(s): D25.9 - LEIOMYOMA OF UTERUS, UNSPECIFIED SNOMED Code(s): 85928958 Plan: 33-year-old 3 para 1-0-1-1 at 39-0/7 weeks presents for scheduled repeat section. Patient is counseled on section and all questions were answered. Patient states understanding and wishes to proceed.
[2024-05-11] MEDS ORDERED: diphenhydrAMINE 25 MG CAP PO PRN (13:35)
[2024-05-11] MEDS ORDERED: diphenhydrAMINE 50 MG CAP PO PRN (13:35)
[2024-05-11] MEDS ORDERED: diphenhydrAMINE 50 MG/ML 1 ML VIAL IVP PRN ×2 (13:35)
[2024-05-11] MEDS ORDERED: ONDANSETRON 4 MG/2 ML VIAL IVP PRN (13:35)
[2024-05-11] MEDS ORDERED: ZOLPIDEM 5 MG TAB PO PRN (13:35)
[2024-05-11] MEDS ORDERED: METOCLOPRAMIDE 5 MG/ML 2 ML VIAL IVP PRN (13:35)
[2024-05-11] MEDS ORDERED: NALOXONE 0.4 MG/ML 1 ML VIAL IV PRN (13:35)
[2024-05-11] MEDS ORDERED: SIMETHICONE 80 MG CHEWABLE PO PRN (13:35)
--- NOTE | 2024-05-11 13:35 | P.OP ---
Date of Procedure: 05/11/24 Preoperative Diagnosis: IUP at 39 and 0, history of x 1 desires repeat Postoperative Diagnosis: same Procedure(s) Performed: Repeat section Anesthesia: spinal Surgeon: Sophia Miller Air Analysis Engineering Technician #1: Radha Serrato Estimated Blood Loss (ml): 225 IV fluids (ml): 700 Urine output (ml): 50 (Clear yellow) Pathology: none sent Condition: stable Disposition: observation Indications for Procedure: History of section x 1, desires repeat Operative Findings: Viable male delivered at 1233, weight of 8 pounds 11 ounces. Anterior uterine fibroid is visualized Description of Procedure: The patient was prepped and draped in the usual fashion after spinal anesthesia was administered by the anesthesia department. A Pfannenstiel incision was made and extended of the abdominal cavity without difficulty. The bladder peritoneum was elevated and incised and reflected distally. A 2 cm incision was made in the transverse plane of the lower uterine segment to enter the uterus at which time clear fluid was noted. The incision was extended in both directions using the bandage scissors. The head was encountered within the field and delivered up and through the incision where the nose and mouth were thoroughly suctioned. Remainder of the infant was delivered onto the surgical field where the cord was doubly clamped, cut, and the infant was passed for resuscitative measures with weight and Apgars as noted above. A segment of cord was then doubly clamped, cut, and set aside should cord gases become necessary. The placenta was delivered manually, intact, and was grossly normal with a grossly normal three-vessel cord. The uterus was exteriorized and the interior cavity of the uterus swept of any remaining placental and membranous fragments with a laparotomy sponge. Anterior fibroid was appreciated, the margins of the incision were grasped with Allis clamps and the incision closed in 2 layers. First layer was a running locking layer of 0 Vicryl from margin to margin followed by a second layer of imbricating 0 Vicryl from margin to margin. Any small points of bleeding were then made hemostatic with the Bovie. Once hemostasis was achieved, the posterior cul-de-sac was suctioned with a guard and the uterine and ovarian findings are as noted above. The uterus was replaced within the abdominal cavity and the gutters swept of any remaining blood fluid or clot. The incision was again reexamined and hemostasis was noted to be excellent. Any small point of bleeding were made hemostatic with the Bovie. Once hemostasis was achieved the parietal peritoneum was loosely reapproximated. The layer of muscles were examined and made hemostatic with the Bovie. Attention was then turned to the fascia which was closed with 2 running stitches of 0 Vicryl proceeding from the lateral margins to the midpoint. The subcutaneous tissues were irrigated, made hemostatic with the Bovie, and reapproximated with a running stitch of 30 Monica. The skin was reapproximated with 4-0 Vicryl. Estimated blood loss for the case was approximately 225 mL. All sponge instrument and needle counts are correct. There were no complications. The patient tolerated the procedure well and proceeded to the recovery room in stable condition. Both mother and infant are resting comfortably in recovery.
[2024-05-11] MEDS: ACETAMINOPHEN IV (For NPO) 1,000 MG in EMPTY BAG 1 BAG IVPB SCH (15:27)
[2024-05-11] MEDS: IBUPROFEN IV 800 MG in SODIUM CHLORIDE 0.9% 250 ML IV SCH (19:47)
[2024-05-11] MEDS: SENNOSIDES-DOCUSATE SODIUM 1 EACH TAB PO SCH (19:49)
[2024-05-11] MEDS: ACETAMINOPHEN TAB 500 MG TAB PO SCH (22:07)
[2024-05-11] MEDS: IBUPROFEN 600 MG TAB PO SCH (22:08)
[2024-05-12 05:31] LABS: Basophils % (A) 0 %; Eosinophils # (A) 0.1 k/uL (0-0.7); Eosinophils % (A) 1 %; HCT 32.8 % (34.0-46.0); Lymphocytes # (A) 1.2 k/uL (1.0-4.8); Lymphocytes % (A) 17 %; MCH 31.3 pg (25.0-35.0); MCHC 33.5 g/dL (31.0-37.0); MCV 93.5 fL (80.0-100.0); Mean Platelet Volume 8.1; Monocytes # (A) 0.5 k/uL (0-1.0); Monocytes % (A) 7 %; Neutrophils % (A) 73 %; Platelet Count 196 k/uL (150-450); RBC 3.51 m/uL (3.80-5.40); RDW 14.1 % (11.5-15.5); WBC 6.8 k/uL (3.8-10.6)
--- NOTE | 2024-05-12 09:11 | P.PNOBGPC ---
Subjective - Subjective Principal diagnosis: Postop day 1, repeat section Interval history: Patient is doing well postoperatively. She is ambulating without difficulty, awaiting spontaneous void and she was straight cathed x 1 last evening. Patient states this happened to her with her last . She denies pain. She states her lochia is minimal. Patient reports: Reports appetite normal, Reports pain well controlled, Reports ambulating normally [place]: doing well Objective - Vital Signs Latest vital signs: Vital Signs Temp Pulse Resp BP Pulse Ox 05/12/24 07:52 98.3 F 67 16 118/71 100 05/12/24 04:00 98.1 F 79 14 120/76 97 05/11/24 23:28 98.3 F 76 15 126/78 100 05/11/24 20:30 98.1 F 69 17 116/74 99 05/11/24 17:39 97.2 F L 73 16 117/65 05/11/24 15:01 97.0 F L 84 16 118/67 98 05/11/24 14:46 80 16 118/60 97 05/11/24 14:31 82 16 116/72 98 05/11/24 14:16 84 16 106/55 97 05/11/24 14:01 80 16 113/56 97 05/11/24 13:45 82 16 114/69 98 05/11/24 13:30 83 16 115/56 97 05/11/24 13:16 82 16 114/56 97 05/11/24 13:00 97.1 F L 85 16 120/52 99 05/11/24 10:34 96.8 F L 84 18 140/84 98 Intake and Output 05/11/24 05/12/24 05/12/24 22:59 06:59 14:59 Output Total 514 600 Balance -514 -600 Output: Urine 450 600 Straight 600 Uretheral (Griffith) 300 Output, Quantitative 64 Blood Loss Other: # Voids 0 - Exam Extremities: Present: normal, edema Abdomen: Present: normal appearance, soft Incision: Present: normal, dry, intact Uterus: Present: normal, firm - Labs Labs: Abnormal Lab Results - Last 24 Hours (Table) 05/12/24 Range/Units 04:47 RBC 3.51 L (3.80-5.40) m/uL Hgb 11.0 L (11.4-16.0) gm/dL Hct 32.8 L (34.0-46.0) % Assessment and Plan (1) History of section Current Visit: Yes Status: Acute Code(s): Z98.891 - HISTORY OF UTERINE SCAR FROM PREVIOUS SURGERY SNOMED Code(s): 016380288 (2) Term Current Visit: No Status: Acute Code(s): Z34.90 - ENCNTR FOR SUPRVSN OF NORMAL , UNSP, UNSP TRIMESTER SNOMED Code(s): 37714620 (3) Uterine fibroid Current Visit: No Status: Acute Code(s): D25.9 - LEIOMYOMA OF UTERUS, UNSPECIFIED SNOMED Code(s): 17111253 Plan: Patient is doing well postoperatively, awaiting spontaneous void. Plan to continue routine postoperative care and anticipate discharge home tomorrow.
--- NOTE | 2024-05-12 11:08 | P.PN ---
Progress Note - Text Progress Note Date: 05/12/24 Postoperative day 1 status post section under spinal anesthesia, and intrathecal morphine given for postoperative analgesia, patient doing well, there is no anesthesia related complications, Patient had no headache, vital signs stable , Assessment and plan= postop day 1 status post , doing well there is no anesthesia related complication.
--- NOTE | 2024-05-13 06:32 | P.DS ---
Providers Date of admission: 05/11/24 09:58 Expected date of discharge: 05/13/24 Attending physician: Sophia Miller Primary care physician: Daquan Cerda - Discharge Diagnosis(es) (1) History of section Current Visit: Yes Status: Acute (2) Term Current Visit: No Status: Acute (3) Uterine fibroid Current Visit: No Status: Acute Hospital Course: 33-year-old G3 now P2012 that presented to labor and delivery for scheduled repeat section on 05/11. Patient has been receiving routine care which has been essentially uncomplicated. For full details in this patient please see the dictated history and physical. Patient was taken back to the operating suite where repeat section was completed without difficulty. For full details on the please see the dictated operative report. Patient delivered of viable male at 1233 on 05/11, weight of 8 pounds 11 ounces Patient has done well postoperatively. On this postoperative day #2 she is ambulating and voiding without difficulty. She is tolerating a regular diet without nausea or vomiting. She states her pain is well-controlled. She would like discharge home. Patient Condition at Discharge: Good Plan - Discharge Summary Discharge Rx Participant: Yes New Discharge Prescriptions: No Action Vit No.180/Iron/Folic [ Plus Tablet] 1 tab PO DAILY Aspirin 81 mg PO DAILY Discharge Medication List Vit No.180/Iron/Folic [ Plus Tablet] 1 tab PO DAILY 03/24/20 [History] Aspirin 81 mg PO DAILY 05/09/24 [History] Follow up Appointment(s)/Referral(s): Sophia Miller DO [Doctor of Osteopathic Medicine] - 05/25/24 11:00 am (6wk appt: 06/21/2024 11a) Patient Instructions/Handouts: (DC), (GEN) Activity/Diet/Wound Care/Special Instructions: No intercourse, or tub baths. No driving for two weeks. Call with any fever, shakes or chills, with any pain not alleviated by over the counter meds, or with any questions or concerns. [id number] ibuprofen 600 mg or 3 tablets every 6 hours as needed for pain.
[2024-05-13 09:45] VITALS: BP 126/82; PULSE 76; RESP 18; TEMP 97.9
== END 2024-05-13 10:45 | disposition home or self-care (01) | DRG 787 ==
LOC: 4FBP 09:58
PROVIDERS: ADMIT Obstetrics & Gynecology Obstetrics; ATTEND Obstetrics & Gynecology Obstetrics
PROC: 10D00Z1 Extraction of Products of Conception, Low, Open Approach (ICD-10-PCS; principal; 2024-05-11 12:00)
DX: O34.211 Maternal care for low transverse scar from previous cesarean delivery (principal); O10.92 Unspecified pre-existing hypertension complicating childbirth; D25.9 Leiomyoma of uterus, unspecified; O34.13 Maternal care for benign tumor of corpus uteri, third trimester; Z37.0 Single live birth; Z3A.39 39 weeks gestation of pregnancy; Z79.82 Long term (current) use of aspirin; Z82.49 Family history of ischemic heart disease and other diseases of the circulatory system; Z88.5 Allergy status to narcotic agent
CPT/HCPCS: 85025; 86850; 86900; 86901

== ENCOUNTER → 2024-08-08 | Outpatient (CLI) | payer BC ==
--- NOTE | 2024-08-08 17:47 | US ---
EXAMINATION TYPE: US axilla RT DATE OF EXAM: 08/08/2024 COMPARISON: NONE CLINICAL INDICATION: Female, 33 years old with history of R22.2 MASS OR LUMP; Patient had a lump in t he right axilla x a couple weeks. Patient states it has gone away, and she can't feel it anymore. TECHNIQUE: Scanned grayscale imaging and color Doppler imaging of the right axilla. FINDINGS: Hypoechoic area with hyperechoic center seen medial right axilla = 2.2 x 1.7 x 1.1 cm. Cor duane measures 5.4 mm in sagittal and 3.5 mm in transverse. IMPRESSION: Prominent lymph node in the right axilla. Consider short-term follow-up in 3 months to ensure stabili ty. [facility], , 08/08/2024 5:45 PM
== END | disposition home or self-care (01) ==
LOC: RADUSWWP 14:02
PROVIDERS: ATTEND Family Medicine
DX: R22.2 Localized swelling, mass and lump, trunk (principal)

== ENCOUNTER → 2024-09-07 | Outpatient (CLI) | payer BC ==
--- NOTE | 2024-09-07 11:05 | US ---
EXAMINATION TYPE: US axilla LT DATE OF EXAM: 09/07/2024 COMPARISON: Contralateral side ultrasound CLINICAL INDICATION: Female, 33 years old with history of R590 ENLARGED LYMPH NODES; Palpable lump le ft axilla Technique: grayscale and color Doppler imaging of the left axilla. Left axilla: 2.4 x 0.7 x 1.1cm lymph node seen cortex is within normal limits for thickness. Measuri ng up to 3 mm. IMPRESSION: Lymph node identified with out suspicious features. [facility], , 09/07/2024 11:02 AM
== END | disposition home or self-care (01) ==
LOC: RADUSWWP 08:41
PROVIDERS: ATTEND Family Medicine
DX: R59.0 Localized enlarged lymph nodes (principal)